=== PATIENT | female | born 1990 | race Caucasian/White ===

== ENCOUNTER 2016-12-30 16:52 | Emergency (ER) | payer BC, MEDICAID ==
[2016-12-30 17:05] VITALS: BP 143/94
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
== END 2016-12-30 17:30 | disposition home or self-care (01) ==
LOC: ER 16:52
DX: S86.911A Strain of unspecified muscle(s) and tendon(s) at lower leg level, right leg, initial encounter (principal); F41.9 Anxiety disorder, unspecified; W10.2XXA Fall (on)(from) incline, initial encounter; Y93.9 Activity, unspecified; Y92.008 Other place in unspecified non-institutional (private) residence as the place of occurrence of the external cause

== ENCOUNTER 2017-02-10 12:00 | Day surgery (SDC) | payer BC, MEDICAID ==
[~2017-02-10 12:00] MED LIST: RINGER'S SOLUTION,LACTATED 1,000 ML IV PRN
[2017-02-10] MEDS ORDERED: RINGER'S SOLUTION,LACTATED 1,000 ML IV ONE (12:28)
[2017-02-10 15:18] VITALS: BP 115/70
--- NOTE | 2017-02-11 16:12 | OR ---
Operative Report - Dictated Report Narrative: Operative Report Date of operation: 02/10/2017 Preoperative diagnosis: GERD symptoms. Colitis on CT scan Postoperative diagnosis: Normal EGD (pathology and CLOtest pending). Subtle mucosal changes suggesting mild colitis (pathology pending). Exam accomplished only to 40 cm due to angulation. Operation: EGD with biopsies. Colonoscopy to 40 cm with directed biopsies Surgeon: Dr Mancia Anesthesia: PRANEETH WILEY CRNA Indications for procedure: The patient is a 26-year-old female referred by Dr. Garcia. She has had abdominal pain and rectal bleeding with a previous CT scan at [facility] suggesting colitis. She has GERD symptoms. Findings: Relatively normal EGD (pathology and CLOtest pending). Scattered mucosal microabscesses suggesting very mild colitis (pathology pending). Exam only accomplished to 40 cm due to angulation Narrative of procedure: The patient was identified preoperatively, and prior to the administration of anesthetic a multidisciplinary timeout was observed EGD: With the patient in the recumbent position, a bite-block was placed, intravenous sedation was administered, and the patient's eyes covered with a towel. The flexible fiberoptic gastroscope was advanced into the posterior pharynx which appeared normal. The supraglottic larynx appeared normal. The cords appeared normal, moved well, and opposed in the midline. The scope was advanced under direct vision into the proximal esophagus which appeared normal. The esophagus appeared freely distensible with normal mucosa. The esophageal mucosa appeared normal down to the gastroesophageal junction which was sharp and noninflamed. The GE junction appeared normally distensible. The scope was advanced into the stomach which was insufflated with air. There was mild gastric erythema but no garo ulcerations or neoplastic lesions were appreciated although the mucosa was slightly friable. A retroflexed view of the gastric fundus revealed no additional lesions. The scope was redirected toward the pylorus. The pylorus appeared patent. The scope was advanced into the duodenal bulb which appeared normal. The scope was advanced further to the horizontal portion of the duodenum which appeared normal, specifically the villous architecture appeared well preserved and clear bile was present. A [employer] biopsy was obtained and submitted for pathology. The biopsy site was seen to be hemostatic. The scope was slowly withdrawn through the duodenal bulb with confirmation that no active ulcer was present. The scope was withdrawn into the stomach and food service sales representatives biopsies of gastric mucosa obtained for CLOtest and pathology. The biopsy sites were seen to be hemostatic. The insufflated air was removed, the scope withdrawn from the patient, and this portion of the procedure terminated. COLONOSCOPY: The patient was then placed in the left lateral position, and the perineum was inspected. There was no evidence of pilonidal disease or skin breakdown. The external appearance of the anus was normal. Sphincter tone was good. The flexible fiberoptic colonoscope was inserted into the rectum which was insufflated with air. The rectal mucosa and submucosal vascular pattern appeared grossly normal with exception of several small areas which might represent microabscess., the prep was seen to be complete. The scope was advanced up the sigmoid colon, which also had several scattered mucosal microabscesses. There was sharp angulation at 25 cm, and then again at 40 cm which precluded proximal advancement of the scope. The scope was withdrawn and readvanced several times to the level of angulation which could not be successfully negotiated without undue pressure. The scope was therefore withdrawn slowly in a circular fashion so that all aspects of distal colonic mucosa were inspected. There was subjective loss of haustral architecture and several scattered patches which might represent microabscess formation. There were no contiguous areas of garo colitis. No diverticular openings were demonstrated. Biopsies of 3 food service sales representatives mucosal areas were obtained and submitted for pathology. The biopsy sites were seen to be hemostatic. The scope was gradually withdrawn to the level of the rectum. As much insufflated air as possible was removed. The scope was withdrawn from the patient and the procedure terminated. The patient tolerated the anesthetic and procedure well without complication and was transferred back to the ambulatory surgery area awake and in stable condition. The patient remained stable throughout a period of postoperative observation. She denied abdominal discomfort, was able to tolerate by mouth intake, and was up without assistance. I shared the operative findings with the patient and she was given copies of the photographs which appear in the medical record. She was discharged home with instructions not to engage in hazardous activity today , but may resume normal activity tomorrow, and advance diet as tolerated. She is to continue those medications as listed in the history and physical exam. I made arrangements to contact her with the biopsy reports and will make additional recommendations for treatment and follow-up based upon those results. Reviewed and electronically signed
[2017-02-12] MEDS ORDERED: RINGER'S SOLUTION,LACTATED 1,000 ML IV PRN (13:20)
== END 2017-02-10 12:01 | disposition home or self-care (01) ==
LOC: AMB 12:00
PROVIDERS: ATTEND Surgery
PROC: 0DBN8ZX Excision of Sigmoid Colon, Via Natural or Artificial Opening Endoscopic, Diagnostic (ICD-10-PCS; 2017-02-10)
PROC: 0DB98ZX Excision of Duodenum, Via Natural or Artificial Opening Endoscopic, Diagnostic (ICD-10-PCS; principal; 2017-02-10 14:00)
PROC: 0DB68ZX Excision of Stomach, Via Natural or Artificial Opening Endoscopic, Diagnostic (ICD-10-PCS; 2017-02-10 14:00)
DX: K29.70 Gastritis, unspecified, without bleeding (principal); K52.9 Noninfective gastroenteritis and colitis, unspecified; R12 Heartburn; Z68.25 Body mass index [BMI] 25.0-25.9, adult

== ENCOUNTER 2017-03-16 14:41 | Emergency (ER) | payer MEDICAID ==
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
[2017-03-16 16:11] VITALS: BP 129/76
== END 2017-03-16 15:05 | disposition home or self-care (01) ==
LOC: ER 14:41
DX: J02.8 Acute pharyngitis due to other specified organisms (principal); Z85.41 Personal history of malignant neoplasm of cervix uteri